=== PATIENT | female | born 1945 | race Caucasian/White ===

== ENCOUNTER → 2018-02-15 | Outpatient (CLI) | payer MEDICARE ==
[~2018-02-15] MED LIST: ASPI81TA94 PO; CALC-635 PO; CALC600T72 PO; HCTZ25 PO; HYDR-2966 PO; HYDR12.556 PO; HYDR12.561 PO; LISI-351 PO; LISI-353 PO; LISI20TA29 PO; NICO-180 TD; OMEG-11 PO; PER PO; POTA-23 PO; POTA-28 PO; POTA2.5T7 PO; SIMV-42 PO; SIMV-49 PO; SIMV-54 PO; VIT-7 PO
== END ==
LOC: LAB 13:06
PROVIDERS: ATTEND Nurse Practitioner Family
DX: I10 Essential (primary) hypertension (principal)
CPT/HCPCS: 36415; 82310; 82374; 82435; 82565; 82947; 84132; 84295; 84520

== ENCOUNTER → 2018-09-30 | Outpatient (CLI) | payer MEDICARE ==
[~2018-09-30] MED LIST changes: +LOSA50TA80 PO
[2018-09-30 08:05] LABS: PLATELET COUNT, AUTOMATED 270 K/uL (150-450)
[2018-09-30 10:04] LABS: LDL CHOLESTEROL 75 mg/dl
== END ==
LOC: LAB 07:50
PROVIDERS: ATTEND Nurse Practitioner Family
DX: E78.5 Hyperlipidemia, unspecified (principal); I10 Essential (primary) hypertension
CPT/HCPCS: 36415; 82040; 82247; 82310; 82374; 82435; 82465; 82565; 82947; 83036; 83718; 84075; 84132; 84155; 84295; 84443; 84450; 84460; 84478; 84520; 85025

== ENCOUNTER → 2018-10-17 | Outpatient (CLI) | payer MEDICARE ==
[~2018-10-17] MED LIST changes: +LOSA100T75 PO
== END ==
LOC: LAB 07:40
PROVIDERS: ATTEND Nurse Practitioner Family
DX: I10 Essential (primary) hypertension (principal)
CPT/HCPCS: 36415; 82310; 82374; 82435; 82565; 82947; 84132; 84295; 84520